=== PATIENT | female | born 2000 | race Caucasian/White ===

== ENCOUNTER 2025-06-23 14:46 | Emergency (ER) | payer OTHER, SELFPAY ==
[2025-06-23 14:48] VITALS: BP 158/102
[2025-06-23 16:18] VITALS: BP 130/79
--- NOTE | 2025-06-23 16:19 | ED.GENMED ---
History of Present Illness
General
Chief Complaint: Breathing Problem
Source: patient
Exam Limitations: none
Time Seen by Provider: 06/23/25 16:13
Nursing documentation reviewed up to this point in time: agreed with
History of Present Illness
History of Present Illness:
24-year-old female with a past medical history of asthma who presents to the ER for evaluation of wheezing and cough. Patient reports that symptoms have been ongoing for the past month but generally worsening. She describes nonproductive cough
with wheezing and some mild shortness of breath. She denies any chest pain. Denies any swelling or pain in the legs. She denies any fevers or chills. She says that she has been using her albuterol both inhaler and nebulizer�she says that she has
been using it 4+ times a day but feels symptoms are poorly controlled. For this reason she scheduled an appoint with her primary care physician to be seen in the office today. When they did their assessment apparently they noted that her oxygen
level was low. She was apparently given an albuterol nebulizer in the office and was referred to the ER for assessment.
Past History
Past History
ED Past Medical History: Psychiatric (adhd)
ED Past Surgical History: None
Social History
Tobacco: Non-smoker
Alcohol: Occasional
Drug: Marijuana
Personal: Single
Living: with family
Employment: Not employed
Review of Systems
Review of Systems
All Other Systems: ROS reviewed and negative except as documented in HPI and ROS
Constitutional: Denies fever or chills
Respiratory: Reports cough and trouble breathing
Cardiac: Denies chest pain or palpitations
ABD/GI: Denies abdominal pain, nausea or vomiting
: Denies flank pain
Musculoskeletal: Denies edema, neck pain or back pain
Neurological: Denies headache
Phy Exam
Physical Exam
Physical Exam:
General: Awake, alert, oriented x3; no acute distress
Head: Normocephalic, atraumatic
Eyes: Conjunctiva normal
Throat: Airway intact, handling secretions
Neck: Trachea midline, supple without meningismus
Lungs: Mild tachypnea with a respiratory rate of 24; no hypoxia with a pulse ox of 96% on room air; she has diffuse bilateral wheezing throughout all lung cosby; fortunately she has no signs of respiratory distress and is speaking in full sentences
Heart: Tachycardia with regular rhythm, no murmurs, gallops, or rubs
Abd: Soft, non distended, nontender
Neuro: Grossly intact
Skin: Warm and dry
Extremities: No edema in extremities, equal pulses in all extremities
Scores
Heart Failure Risk
Heart Failure Risk Score: Not Applicable
Heart Score for Chest Pain Patients
STEMI patient?: Not applicable
Withdrawal Assessment of Alcohol
Withdrawal Assessment Completed?: Not applicable
Course
Orders/Labs/Results
Orders:
Orders
06/23/25 14:53
Chest [CR Chest - 2 Views ] Urgent
Comment:
Reason For Exam: asthma
06/23/25 16:18
Ipratropium/Albuterol Sulfate [Duoneb] 3 ml INH R NOW STA
MethylPREDNISolone PF [Solu-Medrol Pf] 125 mg IV NOW STA
06/23/25 16:25
Basic Metabolic Panel Urgent
COVID-19 Antigen Urgent
Source: Nasal Swab
Complete Blood Count/With Diff Urgent
Influenza A+B Rapid Molecular Urgent
BESSIE Source: Nasal Swab
Specimen Description:
06/23/25 17:28
Ipratropium/Albuterol Sulfate [Duoneb] 3 ml INH R NOW STA
Abnormal Lab Results
06/23/25
16:25
Absolute Eos (auto) 1.4 H 10^3/uL
(0-0.7)
Eosinophils % 13.0 H %
(0-6)
Glucose 101 H mg/dl
(70-99)
06/23/25 16:25
06/23/25 16:25
Vital Signs
Initial and Last Documented VS:
Initial Vital Signs
Temp Pulse Resp BP Pulse Ox
37.2 C 100 24 158/102 96
06/23/25 14:48 06/23/25 14:48 06/23/25 14:48 06/23/25 14:48 06/23/25 14:48
Last Documented Vital Signs
Temp Pulse Resp BP Pulse Ox
37.2 C 89 18 130/79 96
06/23/25 14:48 06/23/25 16:31 06/23/25 16:31 06/23/25 16:18 06/23/25 16:23
MDM/Problems Addressed
Differential Diagnosis Includes:
Asthma exacerbation, pneumonia
MDM/Problems Addressed:
24-year-old female presents for evaluation of progressive shortness of breath, wheezing, cough over the past month; sent by her primary for evaluation. She is hypertensive and tachycardic, mild tachypnea but no hypoxia, no respiratory distress.
Physical exam as noted significant for diffuse wheezing on lung auscultation. Will plan to check basic labs and chest x-ray. Will treat with steroid and nebs here. Will reassess after the above.
Labs reviewed and no clinically significant abnormalities. COVID and flu negative. Chest x-ray reviewed by me shows no acute disease. Clinical reassessment patient with normal respiratory rate, normal pulse ox. Subjectively reports improvement.
On lung auscultation she still has bilateral wheezing but significantly improved from prior. Will treat with additional DuoNeb with continued wheezing; if symptoms and exam continue to improve can likely be discharged on a course of oral steroids.
Clinical reassessment after repeat neb patient feeling better, vital stable. Only a faint scattered wheeze on lung auscultation�she sounds and feels much better. Stable for discharge for outpatient treatment of her acute asthma exacerbation.
Spoke to patient about steroid course and albuterol treatments at home. She fortunately already has a nebulizer machine. Spoke about return precautions in detail and all questions answered.
Chronic conditions affecting care:
Asthma
*Radiology
Radiology exam reviewed: preliminary read by ED provider
*Pulse Oximetry
SaO2: 96
Oxygen Mode of Delivery: Room air
Patient hypoxic: no (96%)
*Critical Care Note
Total Time (30-74mins, 75-104mins- exclusive of procedures): Not Applicable
Data Reviewed
Source: patient
ED Attending Note
-
Portions of this chart may have been created with voice recognition software.� Occasional wrong word or��sound alike� substitutions may have occurred due to the inherent limitations of voice recognition software.
Discharge Plan
Departure
Patient Disposition: Home (Routine Discharge)
Date of Disposition: 06/23/25
Time of Disposition: 18:16
Patient with high blood pressure during this ER visit?: Yes
Discharge Problem:
Acute asthma exacerbation
Instructions: Asthma, Adult (DC)
Prescriptions:
New
albuterol sulfate 2.5 mg /3 mL (0.083 %) solution for nebulization
2.5 mg inhalation Q4H PRN (Reason: shortness of breath or wheezing) Qty: 75 0RF
prednisone 50 mg tablet
50 mg PO DAILY Qty: 5 0RF
No Action
dextroamphetamine-amphetamine [Adderall] 10 mg Tablet
10 mg PO NOON
dextroamphetamine-amphetamine [Adderall XR] 20 mg Capsule,Extended Release 24hr
20 mg PO .QAM
Pulmicort Flexhaler 180 mcg/actuation Aerosol Powdr Breath Activated
2 inh INHALATION DAILY
sertraline 150 mg Capsule
150 mg PO DAILY
Activity Restrictions/Additional Instructions:
Thank you for visiting the Emergency Department at [facility].
1. Please schedule a follow up appointment as directed. Call first thing tomorrow morning to make an appointment.
2. If indicated, please take your medications as instructed and indicated on discharge paperwork.
3. If any of your symptoms do not improve, or persist, or become more severe within 6-12 hours, please return to the emergency department for further care.
4. Please return to the emergency department if you develop a headache, neck pain/stiffness, fever greater than 100.4F, chest pain, shortness of breath, persistent nausea, vomiting, slurred speech, difficulty walking, numbness/tingling, weakness,
signs of infection or any other symptoms that are worrisome to you.
Please call [phone] if you have any questions.
Interventions
Interventions:
*Risk Screen - Suicide Last Done: 06/23/25 14:48
*General Assessment Last Done: 06/23/25 14:48
*Neglect/Abuse Screening Last Done: 06/23/25 14:48
*ED- Fall Risk Assessment Last Done: 06/23/25 14:48
*ED COVID-19 Vaccine History Last Done: 06/23/25 14:48
*ED Influenza Vaccine History Last Done: 06/23/25 14:48
ED- Cardiac Assessment Last Done: 06/23/25 16:31
ED- Pulmonary Assessment Last Done: 06/23/25 16:31
Discharge Date and Time
Print Language: CHILEAN
[2025-06-23] MEDS: SOLU-MEDROL PF 125 MG IV (16:27)
[2025-06-23] MEDS: DUONEB 3 ML INH ×2 (16:27→17:35)
[2025-06-23 16:31] VITALS: BMI 32.0
[2025-06-23 16:35] LABS: Hematocrit 44.7 % (37.0-47.0); Hemoglobin 15.4 g/dL (12.0-16.0); Mean Corp Hgb Conc. 34.5 g/dL (33.0-37.0); Mean Corpuscular Volume 89.9 fL (81.0-99.0); Nucleated Red Blood Cells % 0 %; Platelet Count 339 10^3/uL (130-400); Red Cell Dist. Width 12.1 % (11.5-14.5)
[2025-06-23 16:50] LABS: Blood Urea Nitrogen 15 mg/dl (7-17); Calcium 10.1 mg/dl (8.4-10.2); Carbon Dioxide 23 mmol/L (22-30); Chloride 105 mmol/L (98-107); Estimated Creatinine Clearance 104 ml/min; Glucose 101 mg/dl (70-99); Potassium 4.1 mmol/L (3.5-5.1); Sodium 140 mmol/L (135-145); eGFR > 60.00
[2025-06-23 16:51] LABS: COVID-19 Antigen Negative (Negative)
[2025-06-23 18:43] VITALS: BP 128/78
== END 2025-06-23 18:44 | disposition home or self-care (01) ==
LOC: EMR 14:46
PROVIDERS: EMERGENCY PHYSICIAN Emergency Medicine; FAMILY PHYSICIAN Physician Assistant
DX: J45.901 Unspecified asthma with (acute) exacerbation (principal); Z11.52 Encounter for screening for COVID-19
CPT/HCPCS: 94640; 96374; 99284; 71046; 80048; 85025; 87502; 87811